=== PATIENT | female | born 1985 | race Caucasian/White ===

== ENCOUNTER 2016-05-02 07:33 | Emergency (ER) | payer OTHER ==
[2016-05-02 07:45] VITALS: BP 126/79
[2016-05-02] MEDS ORDERED: Acetaminophen TAB* 325 MG PO ONE (07:48)
--- NOTE | 2016-05-02 07:57 | UC ---
Respiratory Complaint HPI - HPI Summary HPI Summary: woke this morning with right ear pain (@ 3 AM) and sore throat. glands always feel swollen. no h/o OM. States has not taken any pain medications. She requests tylenol here. Here with BF Miguel. denies , on depo and UTD. + cough, no wheezing. no sinus pain. has had strep in past and it does feel similar. + smoker. - History of Current Complaint Chief Complaint: UCGeneralIllness Stated Complaint: COUGH,RIGHT EAR COMPLAINT Time Seen by Provider: 05/02/16 07:48 Hx Last Menstrual Period: 12/2013 ( had a baby 10/2013); denies sexual activity - Allergies/Home Medications Allergies/Adverse Reactions: Allergies Allergy/AdvReac Type Severity Reaction Status Date / Time Latex Allergy Swelling Verified 05/02/16 07:45 Home Medications: Home Medications Levothyroxine TAB* [Synthroid TAB*] 125 mcg PO DAILY 05/02/16 [History Confirmed 05/02/16] PMH/Surg Hx/FS Hx/Imm Hx Previously Healthy: Yes Endocrine History Of: Denies: Diabetes, Thyroid Disease Cardiovascular History Of: Reports: Cardiac Disorders - murmur Denies: Hypertension Respiratory History Of: Denies: Asthma - Surgical History Surgical History: Yes Surgery Procedure, Year, and Place: Thyroid Cancer 04/2015 - Family History Known Family History: Positive: Hypertension - Social History Alcohol Use: None Substance Use Type: None Smoking Status (MU): Light Every Day Tobacco Smoker Type: Cigarettes Amount Used/How Often: 5 CIG TODAY Length of Time of Smoking/Using Tobacco: 10 YRS Household Exposure Type: Cigarettes - Immunization History Most Recent Influenza Vaccination: not sure Review of Systems Constitutional: Fatigue Skin: Negative Eyes: Negative ENT: Sore Throat, Ear Ache Respiratory: Cough Cardiovascular: Negative Gastrointestinal: Negative Genitourinary: Negative Motor: Negative Neurovascular: Negative Musculoskeletal: Negative Neurological: Negative Psychological: Negative All Other Systems Reviewed And Are Negative: Yes Physical Exam Triage Information Reviewed: Yes Appearance: Well-Nourished, Ill-Appearing - mild cough Vital Signs: Initial Vital Signs Temp 99.3 F 05/02/16 07:41 Pulse 93 05/02/16 07:41 Resp 18 05/02/16 07:41 BP 126/79 05/02/16 07:41 Pulse Ox 100 03/24/17 07:41 Vital Signs Reviewed: Yes Eye Exam: Normal ENT: Positive: Pharyngeal erythema, TMs normal. Negative: TM bulging, TM dull, TM red Dental Exam: Normal Neck exam: Normal Neck: Positive: Supple, Nontender, No Lymphadenopathy. Negative: Nuchal Rigidity Respiratory: Positive: No respiratory distress, No accessory muscle use, Decreased breath sounds. Negative: Crackles, Rhonchi, Stridor, Wheezing Cardiovascular Exam: Normal Cardiovascular: Positive: RRR, No Murmur, Pulses Normal, Brisk Capillary Refill Abdominal Exam: Normal Abdomen Description: Positive: Nontender, Soft Musculoskeletal Exam: Normal Neurological Exam: Normal Psychological Exam: Normal Skin Exam: Normal UC Diagnostic Evaluation - Laboratory O2 Sat by Pulse Oximetry: 100 Respiratory Course/Dx - Course Course Of Treatment: rapid flu neg. rapid strep neg. adv to d/c smoking. they understood me well and are very agreeable with this plan. - Differential Dx/Diagnosis Differential Diagnosis/HQI/PQRI: Bronchitis, Influenza, Laryngitis, Sinusitis, Other - OM, eustachean tube dysfunction Provider Diagnoses: bronchitis, smoker, eustachean tube dysfunction. Discharge - Discharge Plan Condition: Stable Disposition: HOME Prescriptions: Albuterol HFA INHALER* [Ventolin HFA Inhaler*] 2 puff INH Q4H PRN #1 mdi PRN Reason: Cough Patient Education Materials: Acute Bronchitis (ED), Eustachian Tube Dysfunction (GEN) Forms: *Work Release Referrals: Chelsey Barth MD [Primary Care Provider] - 3 Days Additional Instructions: Fluids and rest are very important. You are contagious and should take extra precautions not to infect others. tylenol and ibuprofen can help your symptoms. [id number] nasal spray OTC will help the ear symptoms.
== END 2016-05-02 08:50 | disposition home or self-care (01) ==
LOC: UCCORT 07:33
DX: J41.0 Simple chronic bronchitis (principal); H69.90 Unspecified Eustachian tube disorder, unspecified ear; F17.210 Nicotine dependence, cigarettes, uncomplicated
CPT/HCPCS: 87502; 87651; 99212; A9270-GY; G0463

== ENCOUNTER 2016-08-03 12:13 | Emergency (ER) | payer OTHER ==
[2016-08-03 12:29] VITALS: BP 123/78
--- NOTE | 2016-08-03 13:00 | UC ---
Back Pain HPI - HPI Summary HPI Summary: Low back pain for about 8mo. She states she has been seen prior about 5mo ago and has had x ray and MRI which did not show anything. She is not on any meds for this pain nor has she tried PT. - History of Current Complaint Chief Complaint: UCBackPain Stated Complaint: LOW BACK PAIN Time Seen by Provider: 08/03/16 12:35 Hx Obtained From: Patient Hx Last Menstrual Period: 07/17/16 Onset/Duration: Gradual Onset Timing: Constant, Lasting Weeks Severity Initially: Moderate Severity Currently: Severe Back Pain: Is Diffuse - She points to the lower thoracic through the lower lumbar spine. Aggravating: Movement - It hurts much more in the morning after sitting a while. , Lifting, Bending Associated Signs And Symptoms: Positive: Tingling - she gets occasional rare tingling that will go away with rest.. Negative: Swelling, Redness, Bruising, Fever, Weakness, Numbness, Bladder Incontinence, Bowel Incontinence - Risk Factors Cauda Equina Risk Factors: Negative - Allergies/Home Medications Allergies/Adverse Reactions: Allergies Allergy/AdvReac Type Severity Reaction Status Date / Time Latex Allergy Swelling Verified 08/03/16 12:23 Home Medications: Home Medications Levothyroxine TAB* [Synthroid TAB*] 137 mcg PO DAILY 08/03/16 [History Confirmed 08/03/16] medroxyPROGESTERone ACETATE* [DEPO-Provera] 150 mg IM SEE INSTRUCTIONS 08/03/16 [History Confirmed 08/03/16] PMH/Surg Hx/FS Hx/Imm Hx Previously Healthy: No - thyroid cancer. - Surgical History Surgical History: Yes Surgery Procedure, Year, and Place: Thyroidectomy, 2016, [facility] - Family History Known Family History: Positive: Hypertension - Social History Alcohol Use: None Substance Use Type: None Smoking Status (MU): Heavy Every Day Tobacco Smoker Type: Cigarettes Amount Used/How Often: 1/2 PPD Length of Time of Smoking/Using Tobacco: Since Age of 10 Have You Smoked in the Last Year: Yes Household Exposure Type: Cigarettes - Immunization History Most Recent Influenza Vaccination: not sure Review of Systems All Other Systems Reviewed And Are Negative: Yes Physical Exam Triage Information Reviewed: Yes Appearance: Well-Appearing - she has some obvious stiffness and pain with getting out of the chair., Well-Nourished Vital Signs: Initial Vital Signs Pulse 84 08/03/16 12:20 Resp 16 08/03/16 12:20 BP 123/78 08/03/16 12:20 Pulse Ox 100 08/03/16 12:20 Vital Signs Reviewed: Yes Eye Exam: Normal ENT Exam: Normal Neck exam: Normal Respiratory Exam: Normal Cardiovascular Exam: Normal Abdominal Exam: Normal Musculoskeletal Exam: Normal Neurological: Positive: Alert, Muscle Tone Normal, Other: - Toe raise, heel raise, squat intact. Pin prick diminished RLE compared to left. Reflexes patella and achilles oni symmetric and 2+ oni.. Negative: Fatigued, Lethargic, Unresponsive, Abnormal Muscle Tone Skin Exam: Normal Back Pain Course/Dx - Course Course Of Treatment: chronic low back apparantly with significant workup in the past. it has been worsening over two weeks but no clinical signs or symptoms of cauda equina. No clinical signs of abscess. No point tenderness to suggest mets from thyroid cancer but this is still a possibility. she agrees to see internal corrosion specialist and to start PT which i have written for. - Differential Dx/Diagnosis Provider Diagnoses: chronic low back pain. Discharge - Discharge Plan Condition: Good Disposition: HOME Prescriptions: Cyclobenzaprine TAB* [Flexeril 10 MG TAB*] 10 mg PO BID PRN #20 tab MDD 1 PRN Reason: Pain Ibuprofen TAB* [Motrin TAB* 800 MG] 800 mg PO Q6H PRN #40 tab MDD 2 PRN Reason: Pain Patient Education Materials: Chronic Back Pain (ED) Referrals: John Pierce MD [Medical Doctor] -
== END 2016-08-03 12:59 | disposition home or self-care (01) ==
LOC: UCCORT 12:13
DX: M54.5 Low back pain (principal); G89.29 Other chronic pain; F17.210 Nicotine dependence, cigarettes, uncomplicated
CPT/HCPCS: 99212; G0463

== ENCOUNTER 2016-09-03 14:23 | Emergency (ER) | payer OTHER | END 2016-09-03 15:16 | disposition left against medical advice (07) | LOC: UCCORT 14:23 | DX: R09.89 Other specified symptoms and signs involving the circulatory and respiratory systems (principal); R05 Cough; Z53.21 Procedure and treatment not carried out due to patient leaving prior to being seen by health care provider ==

== ENCOUNTER 2016-09-04 12:01 | Emergency (ER) | payer OTHER | END 2016-09-04 13:26 | disposition left against medical advice (07) | LOC: UCCORT 12:01 | DX: R05 Cough (principal); R09.89 Other specified symptoms and signs involving the circulatory and respiratory systems; Z53.21 Procedure and treatment not carried out due to patient leaving prior to being seen by health care provider ==

== ENCOUNTER 2016-12-28 09:14 | Emergency (ER) | payer MEDICAID, OTHER ==
[2016-12-28 09:51] VITALS: BP 100/81
--- NOTE | 2016-12-28 10:02 | UC ---
Complaint Female HPI - HPI Summary HPI Summary: Pt c/o urinary c/o, foul smelling urine, mucous in urine, vaginal itching, low back and pelvis discomfort X 2 weeks. - History Of Current Complaint Chief Complaint: UCGU Stated Complaint: URINARY Time Seen by Provider: 12/28/16 09:44 Hx Obtained From: Patient Hx Last Menstrual Period: unknown ?: No - unsure Onset/Duration: Gradual Onset, Lasting Weeks, Still Present Timing: Constant Severity Initially: Mild Severity Currently: Mild Character: Burning Aggravating Factor(s): Urination Associated Signs And Symptoms: Positive: Back Pain - discomfort - Risk Factors Ectopic Risk Factor: Negative Ovarian Torsion Risk Factor: Reproductive Age - Allergies/Home Medications Allergies/Adverse Reactions: Allergies Allergy/AdvReac Type Severity Reaction Status Date / Time Latex Allergy Swelling Verified 12/28/16 09:40 PMH/Surg Hx/FS Hx/Imm Hx Previously Healthy: Yes - Surgical History Surgical History: Yes Surgery Procedure, Year, and Place: Thyroidectomy, 2016, [facility] - Family History Known Family History: Positive: Hypertension - Social History Occupation: Employed Full-time Lives: With Family Alcohol Use: None Substance Use Type: None Smoking Status (MU): Heavy Every Day Tobacco Smoker Type: Cigarettes Amount Used/How Often: 1/2 PPD Length of Time of Smoking/Using Tobacco: Since Age of 10 Have You Smoked in the Last Year: Yes Household Exposure Type: Cigarettes - Immunization History Most Recent Influenza Vaccination: not sure Vaccination Up to Date: No Review of Systems Constitutional: Negative Skin: Negative Eyes: Negative ENT: Negative Respiratory: Negative Cardiovascular: Negative Gastrointestinal: Abdominal Pain - pelvic discomfort Genitourinary: Dysuria, Vaginal/Penile Burning, Vaginal/Penile Itching Motor: Negative Neurovascular: Negative Musculoskeletal: Negative Neurological: Negative Psychological: Negative Is Patient Immunocompromised?: No All Other Systems Reviewed And Are Negative: Yes Physical Exam Triage Information Reviewed: Yes Appearance: Well-Appearing Vital Signs: Initial Vital Signs Temp 98.3 F 12/28/16 09:35 Pulse 93 12/28/16 09:35 Resp 14 12/28/16 09:35 BP 100/81 12/28/16 09:35 Pulse Ox 99 12/28/16 09:35 Vital Signs Reviewed: Yes Eye Exam: Normal ENT Exam: Normal Dental Exam: Normal Neck exam: Normal Respiratory Exam: Normal Cardiovascular Exam: Normal Abdominal Exam: Other Abdomen Description: Positive: Other: - midl tenderness suprapubic Musculoskeletal Exam: Normal Neurological Exam: Normal Psychological Exam: Normal Skin Exam: Normal Complaint Female Dx - Course Course Of Treatment: I discussed with the pt the need to wait for test results. Pt verbalized understanding and agreed to plan of care. - Differential Dx/Diagnosis Differential Diagnosis/HQI/PQRI: Sexually Transmitted Disease, Urinary Tract Infection Provider Diagnoses: UTI-? vaginitis Discharge - Discharge Plan Condition: Stable Disposition: HOME Patient Education Materials: Vaginitis (ED) Referrals: Lillian Chapman PA [Physician Saxophone Assembler] - If Needed Additional Instructions: Please wait until your lab results are finalized. After we have the results are finalized we will provide instruction as to treatment plan.
--- NOTE | 2016-12-30 08:15 | UC ---
Progress - Progress Note Progress Note: please notify pt (+) UTI- final culture pending (+) BV patient ERx'ed keflex and metrogel vaginal
== END 2016-12-28 10:38 | disposition home or self-care (01) ==
LOC: UCCORT 09:14
DX: N76.0 Acute vaginitis (principal); B96.20 Unspecified Escherichia coli [E. coli] as the cause of diseases classified elsewhere; Z32.02 Encounter for pregnancy test, result negative; E89.0 Postprocedural hypothyroidism; Z91.040 Latex allergy status; F17.210 Nicotine dependence, cigarettes, uncomplicated
CPT/HCPCS: 81003; 84702; 87077; 87086; 87186; 87480; 87491; 87510; 87591; 87660; 87798; 99211; G0463

== ENCOUNTER 2017-01-13 15:57 | Emergency (ER) | payer MEDICAID, OTHER ==
[2017-01-13 16:24] VITALS: BP 100/66
[2017-01-13 20:05] LABS: Hematocrit 40 % (35-47); Hemoglobin 13.3 g/dl (12.0-16.0); Mean Corpuscular HGB Conc 33 g/dl (31-36); Mean Corpuscular Hemoglobin 30 pg (27-31); Mean Corpuscular Volume 90 fL (80-97); Mean Platelet Volume 9 um3 (7.4-10.4); Platelet Count 203 10^3/ul (150-450); Red Blood Count 4.47 10^6/ul (4.0-5.4); Red Cell Distribution Width 13 % (10.5-15); White Blood Count 5.5 10^3/ul (3.5-10.8)
[2017-01-13 22:08] LABS: EGFR Non-African American 75.5 (>60)
--- NOTE | 2017-01-14 08:40 | UC ---
Progress - Progress Note Progress Note: Labs and d/c notes reviewed. All wnl except for elevated tsh. Levothyroxine rx given. Please have the patient f/u with pcp to discuss the nipple discharge further and to f/u on elevated tsh.
--- NOTE | 2017-01-14 08:43 | UC ---
Progress - Progress Note Progress Note: Labs and d/c notes reviewed. All wnl except for elevated tsh. Levothyroxine rx given. Please have the patient f/u with pcp to discuss the nipple discharge further and to f/u on elevated tsh. If the discharge is just the left she should f/u with pcp to discuss any possibility of breast cancer even if this is unlikely.
--- NOTE | 2017-01-16 08:54 | UC ---
Progress - Progress Note Progress Note: Labs and d/c notes reviewed. All wnl except for elevated tsh. Levothyroxine rx given. Please have the patient f/u with pcp to discuss the nipple discharge further and to f/u on elevated tsh. If the discharge is just the left she should f/u with pcp to discuss any possibility of breast cancer even if this is unlikely. 01/16/17 Jone Mccord - Prelim results Corynebacterium sp. Final staph and mrsa negative. Call pt to encourage pcp f/u for tx and coarse of action as planned.
--- NOTE | 2017-02-23 21:09 | UC ---
Skin Complaint HPI - HPI Summary HPI Summary: 31 year old female with unilateral nipple discharge for several months with past few month of nipple in no eversion, now unable to mirza nipple. No recent or chance of , no recent medication changes, hormonal fluctuations. Has not notified PCP. no fever, chills. + weight loss. non- tender, no odor - History of Current Complaint Chief Complaint: UCSkin Time Seen by Provider: 01/13/17 16:47 Stated Complaint: PERSONAL Hx Obtained From: Patient Hx Last Menstrual Period: 07/17/16 ?: No Onset/Duration: Sudden Onset, Lasting Weeks, Worse Since - worsening over time Skin Exposure Onset/Duration: Weeks Ago Onset Severity: Mild Current Severity: Moderate Pain Intensity: 0 Pain Scale Used: 0-10 Numeric - Allergy/Home Medications Allergies/Adverse Reactions: Allergies Allergy/AdvReac Type Severity Reaction Status Date / Time Latex Allergy Swelling Verified 01/13/17 16:22 Review of Systems Skin: Other - nipple inversion L side with drainage Is Patient Immunocompromised?: No All Other Systems Reviewed And Are Negative: Yes PMH/Surg Hx/FS Hx/Imm Hx Previously Healthy: Yes - Surgical History Surgical History: Yes Surgery Procedure, Year, and Place: Thyroidectomy, 2016, [facility] - Family History Known Family History: Positive: Hypertension - Social History Alcohol Use: None Substance Use Type: None Smoking Status (MU): Heavy Every Day Tobacco Smoker Type: Cigarettes Amount Used/How Often: 1/2 PPD Length of Time of Smoking/Using Tobacco: Since Age of 10 Have You Smoked in the Last Year: Yes Household Exposure Type: Cigarettes - Immunization History Most Recent Influenza Vaccination: not sure Vaccination Up to Date: No Physical Exam Triage Information Reviewed: Yes Appearance: Well-Appearing, No Pain Distress, Well-Nourished, Thin Vital Signs: Initial Vital Signs Temp 97.9 F 01/13/17 16:17 Pulse 71 01/13/17 16:17 Resp 16 01/13/17 16:17 BP 100/66 01/13/17 16:17 Pulse Ox 100 01/13/17 16:17 Vital Signs Reviewed: Yes Eyes: Positive: Conjunctiva Clear Neck: Positive: Supple, Nontender, No Lymphadenopathy Respiratory: Positive: Chest non-tender, Lungs clear, Normal breath sounds, No respiratory distress, No accessory muscle use Cardiovascular: Positive: RRR, No Murmur, Pulses Normal Abdomen Description: Positive: Nontender, No Organomegaly, Soft, Bruit. Negative: CVA Tenderness (R), CVA Tenderness (L), Distended Skin: Positive: Other - L nipple inverted with white, non-odor drainage noted, unalbe to express, no nodules, masses palpable over breast, no assocaited LAD axillary b/l, R breast normal exam. Course/Dx - Course Course Of Treatment: preg neg, labs drawn, follow up at [facility] , discussed with in house radiologist, no other studies available to determine cause. Discussed with on site physician - Diagnoses Provider Diagnoses: left nipple inversion, drainage Discharge - Discharge Plan Condition: Guarded Disposition: HOME Patient Education Materials: Nipple Discharge (ED) Referrals: Chelsey Barth MD [Primary Care Provider] - Additional Instructions: [facility]: [phone], call for appointment tomorrow for further treatment/ evaluation for mammogram. - Blood work- Results should be back within 48 hours, please call or we will call with abnormalities - Call primary physician for follow up of symptoms. - Urine preg- negative - UA- negative
== END 2017-01-13 17:39 | disposition home or self-care (01) ==
LOC: UCCORT 15:57
DX: N64.59 Other signs and symptoms in breast (principal); N64.52 Nipple discharge; Z32.02 Encounter for pregnancy test, result negative; E89.0 Postprocedural hypothyroidism; Z91.040 Latex allergy status; F17.210 Nicotine dependence, cigarettes, uncomplicated
CPT/HCPCS: 36415; 80053; 81003; 84146; 84436; 84443; 84702; 85027; 87070; 87076; 87077; 87205; 87640; 87641; 99211; G0463

== ENCOUNTER → 2017-03-05 11:50 | Emergency (ER) | payer SELFPAY ==
[~2017-03-05 11:50] MED LIST: PPD test dose* 5 TU/0.1 ML TEST (*USE PPD ORDER SET*) ONE
== END | disposition home or self-care (01) ==
LOC: OHCORT 11:50
DX: Z11.1 Encounter for screening for respiratory tuberculosis (principal)

== ENCOUNTER 2017-10-20 12:04 | Emergency (ER) | payer OTHER ==
[2017-10-20 12:23] VITALS: BP 116/68
[2017-10-20] MEDS ORDERED: Ketorolac INJ* 60 MG/2 ML VIAL IM ONE (12:53)
[2017-10-20] MEDS ORDERED: Ondansetron ODT TAB* 4 MG PO ONE (12:54)
--- NOTE | 2017-10-20 13:22 | UC ---
Headache HPI - HPI Summary HPI Summary: headaches x 5 days pain is in the right side , sever 7 out of 10 , radiation to her right eye and face pain is constant, no getting better with any otc pain meds, pain is worse with bright light and noise no fever, no chills, + nausea, no vomiting - History Of Current Complaint Chief Complaint: KARENeajacob Stated Complaint: MIGRAINE X5 DAYS Time Seen by Provider: 10/20/17 12:46 Hx Obtained From: Patient Hx Last Menstrual Period: 09/28/17 ?: No Onset/Duration: Gradual Onset, Lasting Days - 5, Still Present Onset Of Symptoms: Gradual Initially Headache Was: Severe Currently Pain Is: Current Pain Scale(0-10)= - 7, Severe Pain Intensity: 9 Timing: Constant Character: Throbbing Location of Headache: Temporal - right Aggravating Factor(s): Exertion, Bright Lights Allevating Factor(s): Nothing Associated Signs And Symptoms: Positive: Dizziness, Nausea. Negative: Seizure, Vomiting, Sinus Pressure, Fever, Neck Pain, Neck Stiffness, Decreased LOC, Visual Changes - Allergies/Home Medications Allergies/Adverse Reactions: Allergies Allergy/AdvReac Type Severity Reaction Status Date / Time latex Allergy Swelling Verified 10/20/17 12:15 Home Medications: Home Medications Acetaminophen [Acetaminophen Extra Strength] 6 tab PO Q6H PRN 10/20/17 [History Confirmed 10/20/17] Ibuprofen TAB* [Motrin TAB* 800 MG] 1,600 mg PO Q6H PRN 10/20/17 [History Confirmed 10/20/17] metroNIDAZOLE [Flagyl] 500 mg PO BID 10/20/17 [History Confirmed 10/20/17] PMH/Surg Hx/FS Hx/Imm Hx - Additional Past Medical History Additional PMH: skin CA Cardiovascular History: Cardiac Disease - [place] - Surgical History Surgical History: Yes Surgery Procedure, Year, and Place: Thyroidectomy, 2016, [facility] - Family History Known Family History: Positive: Hypertension - Social History Alcohol Use: None Substance Use Type: None Smoking Status (MU): Heavy Every Day Tobacco Smoker Type: Cigarettes Amount Used/How Often: 1/2 PPD Length of Time of Smoking/Using Tobacco: Since Age of 10 Have You Smoked in the Last Year: Yes Household Exposure Type: Cigarettes - Immunization History Most Recent Influenza Vaccination: not sure Vaccination Up to Date: No Review of Systems Skin: Negative Eyes: Negative ENT: Negative Respiratory: Negative Cardiovascular: Negative Gastrointestinal: Negative Neurological: Headache Is Patient Immunocompromised?: No All Other Systems Reviewed And Are Negative: Yes Physical Exam Triage Information Reviewed: Yes Appearance: Well-Appearing, Well-Nourished, Pain Distress Vital Signs: Initial Vital Signs Temp 98.5 F 10/20/17 12:16 Pulse 95 10/20/17 12:16 Resp 16 10/20/17 12:16 BP 116/68 10/20/17 12:16 Pulse Ox 100 10/20/17 12:16 Vital Signs Reviewed: Yes Eyes: Positive: Conjunctiva Clear ENT: Positive: Normal ENT inspection, Hearing grossly normal, Pharynx normal Respiratory: Positive: Chest non-tender, Lungs clear, Normal breath sounds Cardiovascular: Positive: RRR, No Murmur, Pulses Normal Abdominal Exam: Normal Abdomen Description: Positive: Nontender, Soft. Negative: CVA Tenderness (R), CVA Tenderness (L), Distended, Guarding Bowel Sounds: Positive: Present Musculoskeletal Exam: Normal Neurological: Positive: Alert, Muscle Tone Normal. Negative: Fatigued, Lethargic, Unresponsive, Abnormal Muscle Tone Headache Course/Dx - Differential Dx/Diagnosis Provider Diagnoses: headache Discharge - Sign-Out/Discharge Documenting (check all that apply): Patient Departure All imaging exams completed and their final reports reviewed: No Studies - Discharge Plan Condition: Stable Disposition: HOME Prescriptions: SUMAtriptan TAB* [Imitrex TAB*] 100 mg PO SEE INSTRUCTIONS #6 tab Patient Education Materials: Acute Headache (ED) Forms: *Work Release Referrals: Chelsey Barth MD [Primary Care Provider] - 5 Days - Billing Disposition and Condition Condition: STABLE Disposition: Home
== END 2017-10-20 13:52 | disposition home or self-care (01) ==
LOC: UCCORT 12:04
DX: R51 Headache (principal)
CPT/HCPCS: 96372; 99212; A9270-GY; G0463; J1885

== ENCOUNTER 2017-12-21 09:36 | Emergency (ER) | payer OTHER ==
--- NOTE | 2017-12-21 11:03 | UC ---
UC General HPI - HPI Summary HPI Summary: pt c/o a few day hx sore throat and cough. in ER last week and dx bronchitis, given an inhaler. - History of Current Complaint Stated Complaint: SORE THROAT, COUGH Time Seen by Provider: 12/21/17 10:57 Hx Obtained From: Patient Hx Last Menstrual Period: 09/28/17 Onset/Duration: Gradual Onset Timing: Constant Associated Signs & Symptoms: Positive: Cough. Negative: Fever - Allergy/Home Medications Allergies/Adverse Reactions: Allergies Allergy/AdvReac Type Severity Reaction Status Date / Time latex Allergy Swelling Verified 12/21/17 11:02 PMH/Surg Hx/FS Hx/Imm Hx Endocrine History: Thyroid Disease - Surgical History Surgical History: Yes Surgery Procedure, Year, and Place: Thyroidectomy, 2016, [facility] - Family History Known Family History: Positive: Hypertension - Social History Occupation: Employed Full-time Alcohol Use: None Substance Use Type: None Smoking Status (MU): Heavy Every Day Tobacco Smoker Type: Cigarettes Amount Used/How Often: 1/2 PPD Length of Time of Smoking/Using Tobacco: Since Age of 10 Have You Smoked in the Last Year: Yes Household Exposure Type: Cigarettes - Immunization History Most Recent Influenza Vaccination: not sure Vaccination Up to Date: Yes Review of Systems All Other Systems Reviewed And Are Negative: Yes ENT: Positive: Sore Throat Respiratory: Positive: Cough Is Patient Immunocompromised?: No Physical Exam Triage Information Reviewed: Yes Appearance: Well-Appearing Vital Signs Reviewed: Yes Eyes: Positive: Conjunctiva Clear ENT: Positive: Pharyngeal erythema, Nasal congestion, TMs normal, Uvula midline. Negative: Nasal drainage, Trismus, Muffled voice Neck: Positive: Supple, Nontender, No Lymphadenopathy Respiratory: Positive: Lungs clear, Normal breath sounds, No respiratory distress Cardiovascular: Positive: RRR, No Murmur Abdomen Description: Positive: Nontender, No Organomegaly, Soft Bowel Sounds: Positive: Present Musculoskeletal: Positive: ROM Intact Neurological: Positive: Alert Psychological: Positive: Age Appropriate Behavior Skin Exam: Normal Diagnostics - Laboratory Diagnostic Studies Completed/Ordered: rapid strep=neg Course/Dx - Course Course Of Treatment: rapid strep=neg. tx supportive. - Differential Dx - Multi-Symptom Provider Diagnoses: uri Discharge - Sign-Out/Discharge Documenting (check all that apply): Patient Departure All imaging exams completed and their final reports reviewed: No Studies - Discharge Plan Condition: Stable Disposition: HOME Patient Education Materials: Upper Respiratory Infection (DC) Referrals: FREDDY Hines [Family Provider] - Additional Instructions: follow up fhn in 5-7 days if not better or sooner if worse. - Billing Disposition and Condition Condition: STABLE Disposition: Home
[2017-12-21 11:14] VITALS: BP 107/61
== END 2017-12-21 11:46 | disposition home or self-care (01) ==
LOC: UCCORT 09:36
DX: J06.9 Acute upper respiratory infection, unspecified (principal); F17.210 Nicotine dependence, cigarettes, uncomplicated
CPT/HCPCS: 87651; 99211; G0463

== ENCOUNTER 2018-03-01 14:05 | Emergency (ER) | payer OTHER ==
[2018-03-01 14:44] VITALS: BP 120/69
--- NOTE | 2018-03-01 14:53 | UC ---
Back Pain HPI - HPI Summary HPI Summary: 32 y/o female presents to the urgent care c/o mid and lower back pain worse for the past 2 weeks. Pt reports she symptoms started about 5 months ago on and off. 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 For the past 2 weeks pain has worsen w/ certain movement. Pt has been taking Ibuprofen PO and Tylenol for 1 week w/o any improvement. About 2 days ago pain 6/10 started to radiate to her RT lower leg w/ mild tingling sensation. Pt denies fever, flank pain, saddle anesthesia, urinary or fecal incontinence, urinary symptoms, SOB, chest pain, abdominal pain, N/V/D. - History of Current Complaint Chief Complaint: UCBackPain Stated Complaint: LOWER BACK PAIN Time Seen by Provider: 03/01/18 14:51 Hx Obtained From: Patient Hx Last Menstrual Period: 02/26/18 ?: No - on her period now Onset/Duration: Gradual Onset, Lasting Weeks - 5 months, Still Present, Worse Since - 2 weeks Timing: Constant Severity Initially: Mild Severity Currently: Moderate Pain Intensity: 8 Pain Scale Used: 0-10 Numeric Back Pain: Is Discrete @ - mid and lower back, Radiates To - rt lower extremity Character: Sharp, Spasmodic Aggravating Factor(s): Movement, Lifting, Bending Alleviating Factor(s): Rest, OTC Meds Associated Signs And Symptoms: Positive: Tingling - over the Rt lower leg. Negative: Swelling, Redness, Bruising, Fever, Weakness, Numbness, Abdominal Pain , Flank Pain, Bladder Incontinence, Bowel Incontinence, Weight Loss, Pain with Weight Bearing - Risk Factors AAA Risk Factors: Negative TAD Risk Factors: Negative Cauda Equina Risk Factors: Negative Epidural Abscess Risk Factors: Negative - Allergies/Home Medications Allergies/Adverse Reactions: Allergies Allergy/AdvReac Type Severity Reaction Status Date / Time latex Allergy Swelling Verified 03/01/18 14:34 Home Medications: Home Medications Escitalopram Oxalate [Lexapro 10 mg] 5 mg PO QAM 03/01/18 [History Confirmed ] PMH/Surg Hx/FS Hx/Imm Hx Previously Healthy: Yes Endocrine History: Hypothyroidism Cancer History: Other - thyroid cancer, skin cancer - Surgical History Surgical History: Yes Surgery Procedure, Year, and Place: Thyroidectomy, 2016, [facility] - Family History Known Family History: Positive: Hypertension - Social History Occupation: Employed Full-time Lives: With Family Alcohol Use: None Substance Use Type: None Smoking Status (MU): Heavy Every Day Tobacco Smoker Type: Cigarettes Amount Used/How Often: 1/2 PPD Length of Time of Smoking/Using Tobacco: Since Age of 10 Have You Smoked in the Last Year: Yes When Did the Patient Quit Smoking/Using Tobacco: last week Household Exposure Type: Cigarettes - Immunization History Most Recent Influenza Vaccination: not sure Vaccination Up to Date: Yes Review of Systems All Other Systems Reviewed And Are Negative: Yes Constitutional: Positive: Negative Skin: Positive: Negative Eyes: Positive: Negative ENT: Positive: Negative Respiratory: Positive: Negative Cardiovascular: Positive: Negative Gastrointestinal: Positive: Negative Genitourinary: Positive: Negative Motor: Positive: Negative Neurovascular: Positive: Negative Musculoskeletal: Positive: Decreased ROM - lower back, Other: - mid and lower back pain Neurological: Positive: Negative Psychological: Positive: Negative Is Patient Immunocompromised?: No Physical Exam - Summary Physical Exam Summary: Vital Signs Reviewed: Yes Appearance: Well-Appearing, Well-Nourished, female sitting in the examining table w/o any apparent pain distress. Eyes: Positive: Conjunctiva Clear - PERRLA, EOMI. ENT: Positive: Normal ENT inspection, Hearing grossly normal, Pharynx normal, TMs normal, Uvula midline Neck: Positive: Supple, Nontender, No Lymphadenopathy Respiratory: Positive: Chest non-tender, Lungs clear, Normal breath sounds, No respiratory distress Cardiovascular: Positive: RRR, No Murmur, Pulses Normal, Brisk Capillary Refill Abdomen Description: Positive: Nontender, No Organomegaly, Soft. Negative: CVA Tenderness (R), CVA Tenderness (L) Bowel Sounds: Positive: Present Musculoskeletal: Positive: Strength Intact, BACK: Patient walked into the urgent care room with symmetric ambulation, No signs of limping, antalgic, able to bear weight. No signs of trauma, No masses palpated. Point tenderness at the level of L3-S1, w/ RT side paraspinal muscle tenderness and spasm on palaption, No B/L CVAT, no flank ecchymosis . No sacroiliac notch tenderness, No saddle anesthesia.ROM: limited due to pain, Straight Leg Raise: negative. Patellar reflexes: brisk, symmetric Muscle strength lower extremities. Dorsiflexion/ plantar flexion of ankles. Heel/ toe walk. Lower extremities: Femoral, popliteal , posterior tibial, and dorsalis pedis pulses WNL. Pt refuse rectal exam Neurological: Positive: Alert, Muscle Tone Normal Psychological Exam: Normal Skin Exam: Normal Triage Information Reviewed: Yes Vital Signs: Initial Vital Signs Temp 96.9 F 03/01/18 14:36 Pulse 81 03/01/18 14:36 Resp 16 03/01/18 14:36 BP 120/69 03/01/18 14:36 Pulse Ox 100 03/01/18 14:36 Back Pain Course/Dx - Course Course Of Treatment: 32 y/o female presents to the urgent care c/o mid and lower back pain worse for the past 2 weeks. Pt reports she symptoms started about 5 months ago on and off. 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 For the past 2 weeks pain has worsen w/ certain movement. Pt has been taking Ibuprofen PO and Tylenol for 1 week w/o any improvement. About 2 days ago pain 6/10 started to radiate to her RT lower leg w/ mild tingling sensation. Pt denies fever, flank pain, saddle anesthesia, urinary or fecal incontinence, urinary symptoms, SOB, chest pain, abdominal pain, N/V/D.Hx obtained. PE: Point tenderness at the level of the L3-S1 and RT paraspinal muscle spasm at the same level on examination. Lumbosacral X-ray ordered, Impression: No acute osseous injury observed. Pt Rx Naproxen PO, flexeril PO, Medrol dose donaldo and given a PT referral. Patient was instructed to the f/u [facility] from [facility] in 1 week if symptoms do not improve or worsen. Patient is able to ambulate freely w/o aid or limp. Plan of care was discussed with the patient and patient understands and agrees. All questions were answered at patient satisfaction. Pt left clinic hemodynamically stable. - Differential Dx/Diagnosis Differential Diagnosis/HQI/PQRI: Fracture, Herniated Disc, Renal Colic, Strain, Sprain, Other - lordosis Provider Diagnosis: Low back strain, Back muscle spasm Discharge - Sign-Out/Discharge Documenting (check all that apply): Patient Departure - D/c home All imaging exams completed and their final reports reviewed: Yes - Discharge Plan Condition: Stable Disposition: HOME Prescriptions: Cyclobenzaprine TAB* [Flexeril 10 MG TAB*] 10 mg PO TID PRN #21 tab PRN Reason: Spasms - Back methylPREDNISolone [Medrol Dosepak 4 MG*] 4 mg PO .SEE DONALDO INSTRUCTION #1 donaldo Naproxen TAB* [Naprosyn 250 mg TAB*] 250 mg PO Q8H PRN #30 tab PRN Reason: Pain Patient Education Materials: Low Back Strain (ED), Muscle Spasm (ED) Forms: *Work Release Referrals: [facility] [Provider Group] - 1 Week Lillian Monson MD [Primary Care Provider] - 1 Week Additional Instructions: 1- Please take Naproxen PO as directed after meals for pain. Medrol dose donaldo as directed to alleviate symptoms 2- Take Flexeril PO as directed for muscle spasm. Please do not drive while taking the medication. 3- Please wear a back support, Avoid strenuous exercise or heavy lifting. 4- Please follow up with Orthopedic Dr from [facility] in 1 week if not improvement of symptoms, for further management. - Billing Disposition and Condition Condition: STABLE Disposition: Home - Attestation Statements Provider Attestation: Per institutional requirements, I have reviewed the chart, however, I was not consulted specifically or made aware of this patient by the midlevel provider. I did not personally evaluate, interact with , or disposition this patient.
== END 2018-03-01 15:48 | disposition home or self-care (01) ==
LOC: UCCORT 14:05
DX: S39.012A Strain of muscle, fascia and tendon of lower back, initial encounter (principal); M62.830 Muscle spasm of back; M79.604 Pain in right leg; Z91.040 Latex allergy status; F17.210 Nicotine dependence, cigarettes, uncomplicated; X58.XXXA Exposure to other specified factors, initial encounter; Y92.9 Unspecified place or not applicable
CPT/HCPCS: 72110; 99212; G0463

== ENCOUNTER 2018-09-15 07:26 | Emergency (ER) | payer OTHER ==
[2018-09-15 07:43] VITALS: BP 110/67
--- NOTE | 2018-09-15 07:59 | UC ---
Complaint Female HPI - HPI Summary HPI Summary: 33-year-old woman comes in with chief complaint of dysuria for 2 weeks. She's also had increased frequency and urgency. She does get some suprapubic discomfort. Denies any flank pain or fevers or chills. She has been drinking a lot of water which do help with symptoms however overall symptoms are getting worse. Denies any abnormal vaginal discharge or any concern of STI. - History Of Current Complaint Chief Complaint: UCGU Stated Complaint: URINARY Time Seen by Provider: 09/15/18 07:42 Hx Last Menstrual Period: 09/08/18 Pain Intensity: 5 - Allergies/Home Medications Allergies/Adverse Reactions: Allergies Allergy/AdvReac Type Severity Reaction Status Date / Time latex Allergy Swelling Verified 09/15/18 07:43 PMH/Surg Hx/FS Hx/Imm Hx Previously Healthy: Yes - Surgical History Surgical History: Yes Surgery Procedure, Year, and Place: Thyroidectomy, 2016, [facility] - Family History Known Family History: Positive: Hypertension - Social History Alcohol Use: None Substance Use Type: None Smoking Status (MU): Heavy Every Day Tobacco Smoker Type: Cigarettes Amount Used/How Often: 1/2 PPD Length of Time of Smoking/Using Tobacco: Since Age of 10 Have You Smoked in the Last Year: Yes When Did the Patient Quit Smoking/Using Tobacco: last week Household Exposure Type: Cigarettes - Immunization History Most Recent Influenza Vaccination: not sure Vaccination Up to Date: Yes Review of Systems All Other Systems Reviewed And Are Negative: Yes Constitutional: Positive: Negative Skin: Positive: Negative Eyes: Positive: Negative ENT: Positive: Negative Respiratory: Positive: Negative Cardiovascular: Positive: Negative Gastrointestinal: Positive: Other - SEE HPI Genitourinary: Positive: Dysuria, Frequency, Urgency Motor: Positive: Negative Neurovascular: Positive: Negative Musculoskeletal: Positive: Negative Neurological: Positive: Negative Psychological: Positive: Negative Is Patient Immunocompromised?: No Physical Exam Triage Information Reviewed: Yes Appearance: Well-Appearing, No Pain Distress, Well-Nourished Vital Signs: Initial Vital Signs Temp 97.3 F 09/15/18 07:37 Pulse 72 09/15/18 07:37 Resp 16 09/15/18 07:37 BP 110/67 09/15/18 07:37 Pulse Ox 100 09/15/18 07:37 Vital Signs Reviewed: Yes Eye Exam: Normal Eyes: Positive: Conjunctiva Clear Neck: Positive: Supple Respiratory: Positive: Lungs clear, Normal breath sounds, No respiratory distress Cardiovascular: Positive: RRR Abdomen Description: Negative: CVA Tenderness (R), CVA Tenderness (L) Musculoskeletal: Positive: Strength Intact, ROM Intact Neurological: Positive: Alert, Muscle Tone Normal Psychological: Positive: Age Appropriate Behavior Skin Exam: Normal Complaint Female Dx - Differential Dx/Diagnosis Provider Diagnosis: UTI (urinary tract infection) Discharge - Sign-Out/Discharge Documenting (check all that apply): Patient Departure All imaging exams completed and their final reports reviewed: No Studies - Discharge Plan Condition: Stable Disposition: HOME Prescriptions: Cephalexin CAP* [Keflex CAP*] 500 mg PO TID #21 cap Fluconazole 150 MG TAB* [Diflucan 150 MG TAB*] 150 mg PO ONCE #2 tablet Patient Education Materials: Urinary Tract Infection in Women (ED) Referrals: Lillian Monson MD [Primary Care Provider] - Additional Instructions: FOLLOW UP WITH YOUR DOCTOR IF NOT COMPLETELY IMPROVED. GET REEVALUATED SOONER IF WORSE; PAIN, FEVER, YOU FEEL ILL OR ANY QUESTIONS OR CONCERNS. - Billing Disposition and Condition Condition: STABLE Disposition: Home
--- NOTE | 2018-09-17 12:27 | UC ---
- Progress Note Progress Note: Urine cx prelimary + E. Coli, final n/a. Taking cephelexin. Course/Dx - Diagnoses Provider Diagnoses: UTI (urinary tract infection) Discharge - Sign-Out/Discharge Documenting (check all that apply): Post-Discharge Follow Up All imaging exams completed and their final reports reviewed: No Studies - Discharge Plan Condition: Stable Disposition: HOME Prescriptions: Cephalexin CAP* [Keflex CAP*] 500 mg PO TID #21 cap Fluconazole 150 MG TAB* [Diflucan 150 MG TAB*] 150 mg PO ONCE #2 tablet Patient Education Materials: Urinary Tract Infection in Women (ED) Referrals: Lillian Monson MD [Primary Care Provider] - Additional Instructions: FOLLOW UP WITH YOUR DOCTOR IF NOT COMPLETELY IMPROVED. GET REEVALUATED SOONER IF WORSE; PAIN, FEVER, YOU FEEL ILL OR ANY QUESTIONS OR CONCERNS. - Billing Disposition and Condition Condition: STABLE Disposition: Home
== END 2018-09-15 08:04 | disposition home or self-care (01) ==
LOC: UCCORT 07:26
DX: N39.0 Urinary tract infection, site not specified (principal); F17.210 Nicotine dependence, cigarettes, uncomplicated; Z91.040 Latex allergy status
CPT/HCPCS: 81003; 87077; 87086; 87186; 99212; G0463

== ENCOUNTER 2019-03-23 09:05 | Emergency (ER) | payer OTHER ==
[2019-03-23 10:11] VITALS: BP 96/68
--- NOTE | 2019-03-23 11:48 | UC ---
Throat Pain/Nasal Gopal HPI - HPI Summary HPI Summary: 33-year-old woman comes in with chief complaint of upper respiratory tract infection symptoms for 2 and half weeks. Patient has rhinorrhea sinus pressure or postnasal drip cough chest congestion. Cough and chest congestion of the worst. Patient is 15 weeks . Last 2 days she is not been feeling the baby move. She does have occasional lower abdominal cramping. No history of asthma. She has been trying cool mist and warm mist which has not really been helping much with the coughing. - History of Current Complaint Chief Complaint: UCRespiratory Stated Complaint: COUGH Time Seen by Provider: 03/23/19 11:23 Hx Last Menstrual Period: 09/08/18 Pain Intensity: 8 - Allergies/Home Medications Allergies/Adverse Reactions: Allergies Allergy/AdvReac Type Severity Reaction Status Date / Time latex Allergy Swelling Verified 03/23/19 10:06 Home Medications: Home Medications Calcium Carbonate/Vitamin D3 [Calcium 500 mg Chewable Tablet] 1,000 mg PO DAILY 03/23/19 [History Confirmed 03/23/19] Escitalopram * [Lexapro 5 mg (NF)] 5 mg PO DAILY 03/23/19 [History Confirmed 01/28] Ferrous Sulfate TAB* 325 mg PO DAILY 03/23/19 [History Confirmed 03/23/19] Vitamin TAB* 1 tab PO DAILY 03/23/19 [History Confirmed 03/23/19] PMH/Surg Hx/FS Hx/Imm Hx Previously Healthy: Yes Endocrine History: Hypothyroidism - Surgical History Surgical History: Yes Surgery Procedure, Year, and Place: Thyroidectomy, 2016, [facility] - Family History Known Family History: Positive: Hypertension - Social History Alcohol Use: None Substance Use Type: None Smoking Status (MU): Heavy Every Day Tobacco Smoker Type: Cigarettes Amount Used/How Often: ~1/2 PPD Length of Time of Smoking/Using Tobacco: Since Age of 10 Have You Smoked in the Last Year: Yes When Did the Patient Quit Smoking/Using Tobacco: last week Household Exposure Type: Cigarettes - Immunization History Most Recent Influenza Vaccination: not sure Vaccination Up to Date: Yes Review of Systems All Other Systems Reviewed And Are Negative: Yes Constitutional: Positive: Other - SEE HPI Skin: Positive: Negative Eyes: Positive: Negative ENT: Positive: Sore Throat, Nasal Discharge, Sinus Congestion Respiratory: Positive: Cough, Other - SEE HPI Cardiovascular: Positive: Chest Pain - WITH COUGHING Gastrointestinal: Positive: Other - SEE HPI Genitourinary: Positive: Negative Motor: Positive: Negative Neurovascular: Positive: Negative Musculoskeletal: Positive: Negative Neurological/Mental Status: Positive: Negative Psychological: Positive: Negative Is Patient Immunocompromised?: No Physical Exam Triage Information Reviewed: Yes Appearance: No Pain Distress, Well-Nourished, Ill-Appearing - MILD Vital Signs: Initial Vital Signs Temp 98.1 F 03/23/19 10:04 Pulse 92 03/23/19 10:04 Resp 18 03/23/19 10:04 BP 96/68 03/23/19 10:04 Pulse Ox 100 03/23/19 10:04 Vital Signs Reviewed: Yes Eye Exam: Normal Eyes: Positive: Conjunctiva Clear ENT: Positive: Pharyngeal erythema, Nasal congestion, Nasal drainage, TMs normal Neck: Positive: Supple Respiratory: Positive: Lungs clear, Normal breath sounds, No respiratory distress Cardiovascular: Positive: RRR Abdomen Description: Negative: CVA Tenderness (R), CVA Tenderness (L) Musculoskeletal: Positive: Strength Intact, ROM Intact Neurological: Positive: Alert, Muscle Tone Normal Psychological: Positive: Age Appropriate Behavior Skin Exam: Normal Throat Pain/Nasal Course/Dx - Course Course Of Treatment: With patient having symptoms greater than 10 days we'll treat with azithromycin. She'll continue symptomatic treatment. We discussed that she needs to call her [employer] today because she has not felt baby move in 2 days since been having intermittent cramping. For the respiratory symptoms patient should get reevaluated if not improving or worse. - Differential Dx/Diagnosis Provider Diagnosis: Bronchitis Discharge ED - Sign-Out/Discharge Documenting (check all that apply): Patient Departure All imaging exams completed and their final reports reviewed: No Studies - Discharge Plan Condition: Stable Disposition: HOME Prescriptions: Azithromyxin FABIO (NF) [Z-Fabio (Zithromax) 250 mg tabs #6] 2 tab PO .TODAY, THEN 1 DAILY #6 tab Patient Education Materials: Acute Bronchitis (ED) Referrals: Lillian Monson MD [Primary Care Provider] - Additional Instructions: CALL YOUR OBGYN DOCTOR TODAY FOR QUESTIONS RELATING TO YOUR . FOLLOW UP WITH YOUR PRIMARY CARE DOCTOR IF YOUR BRONCHITIS SYMPTOMS ARE NOT COMPLETELY IMPROVED. GET REEVALUATED SOONER IF NOT IMPROVED OR WORSE OR ANY QUESTIONS OR CONCERNS. - Billing Disposition and Condition Condition: STABLE Disposition: Home
== END 2019-03-23 12:01 | disposition home or self-care (01) ==
LOC: UCCORT 09:05
DX: J40 Bronchitis, not specified as acute or chronic (principal); F17.210 Nicotine dependence, cigarettes, uncomplicated; R09.81 Nasal congestion; R09.89 Other specified symptoms and signs involving the circulatory and respiratory systems; Z91.040 Latex allergy status
CPT/HCPCS: 99212; G0463